=== PATIENT | male | born 1960 | race African-American/Black ===

== ENCOUNTER 2021-02-26 07:02 | Day surgery (SDC) | payer OTHER ==
[2021-02-26] MEDS ORDERED: NA CHLORIDE 0.9% 1,000 ML ONE (07:56)
[2021-02-26] MEDS ORDERED: propofoL 200 MG/20 ML VIAL IV ONE ×3 (08:51→09:27)
[2021-02-26] MEDS ORDERED: LIDOCAINE 1% MPF 5 ML VIAL ONE (08:51)
[2021-02-26 10:09] VITALS: BP 114/81; TEMP 97.2; O2SAT 98
--- NOTE | 2021-02-26 20:14 | OP ---
Surgeon: Willie Fish MD Procedure Performed: Colonoscopy. Indications For Procedure: History of polyps. Plan For Anesthesia: Monitored anesthesia care. Complexity: Average. Technique: After obtaining informed consent from the patient explaining risks and complications whic h include, but are not limited to bleeding, infection, perforation, and anesthesia complication, the patient was placed in a left lateral position and sedation was given. Digital rectal exam was perfor med. Subsequently, scope inserted into the rectum and was guided to the cecum. Subsequently, the sc ope was withdrawn. The quality of prep was poor with quite limited visualization. Findings: No obstructing mass lesions were visualized, but cannot comment on any other finding due t o poor prep. Plan: Continue current management. I would recommend repeating colonoscopy with extended prep, prob ably another half dose of the prep in 3-6 months. US/MODL Voice ID: [id number] Report ID: [id number]
== END 2021-02-26 09:38 | disposition home or self-care (01) ==
LOC: OR 07:02
PROVIDERS: ATTEND Internal Medicine Gastroenterology
PROC: 0DJD8ZZ Inspection of Lower Intestinal Tract, Via Natural or Artificial Opening Endoscopic (ICD-10-PCS; principal; 2021-02-26 08:30)
DX: Z86.010 Personal history of colon polyps (principal); Z20.822 Contact with and (suspected) exposure to COVID-19; I10 Essential (primary) hypertension; I51.9 Heart disease, unspecified; E66.9 Obesity, unspecified; K57.30 Diverticulosis of large intestine without perforation or abscess without bleeding; R19.7 Diarrhea, unspecified
CPT/HCPCS: 82947; 45378; U0003; J2704 ×3; J7030

== ENCOUNTER 2021-09-01 08:17 | Day surgery (SDC) | payer OTHER ==
[2021-09-01] MEDS ORDERED: NA CHLORIDE 0.9% 1,000 ML ONE (08:30)
[2021-09-01] MEDS ORDERED: ALBUTEROL 2.5 MG/3 ML NEB SOL ONE (09:00)
[2021-09-01] MEDS ORDERED: propofoL 200 MG/20 ML VIAL IV ONE (12:27)
[2021-09-01] MEDS ORDERED: LIDOCAINE 1% MPF 5 ML VIAL ONE (12:27)
[2021-09-01] MEDS ORDERED: SIMETHICONE 40 MG/ 0.6 ML ONE (12:46)
[2021-09-01 14:17] VITALS: O2SAT 99
[2021-09-01 14:19] VITALS: BP 106/50; TEMP 96.8
--- NOTE | 2021-09-02 00:51 | OP ---
Surgeon: Willie Fish MD Procedure Performed: Colonoscopy. Indications For Procedure: History of polyps, high risk screening. Plan For Anesthesia: Monitored anesthesia care. Complexity: High due to patient's pulmonary status. Technique: After obtaining informed consent from the patient and explaining risks and complications, which include, but are not limited to bleeding, infection, perforation, and anesthesia complications , patient was placed in a left lateral position and sedation was given. Digital rectal exam was perf ormed. Then the scope was advanced into the rectum and carefully guided up till the cecum. The cecu m was identified by the ileocecal valve and appendiceal orifice. Then scope gradually withdrawn whil e carefully examining the mucosa. Quality of prep was fair with [place] prep score of 6 x 9. After c ompletion of examination, scope and equipment were withdrawn and procedure terminated in a safe sebastian r. Findings: 1.TIMOTEO revealed decreased rectal tone. Few diverticula seen in the sigmoid. 2.Diminutive polyps seen in the rectum. These were removed by cold forceps biopsies. No other ronald s lesion seen in the entire colon. Complications: None. Tolerance To Anesthesia: Excellent. Postoperative Diagnosis: Diverticulosis, polyps, decreased rectal tone. Estimated Blood Loss: Minimal. Plan: 1.Await pathology. 2.Follow up in the GI clinic. 3.High-fiber diet. 4.Repeat colonoscopy in 3 to 5 years based on pathology. US/MODL Voice ID: [id number] Report ID: [id number]
== END 2021-09-01 14:00 | disposition home or self-care (01) ==
LOC: OR 08:17
PROVIDERS: ATTEND Internal Medicine Gastroenterology
PROC: 0DBP8ZX Excision of Rectum, Via Natural or Artificial Opening Endoscopic, Diagnostic (ICD-10-PCS; principal; 2021-09-01 10:00)
DX: Z12.11 Encounter for screening for malignant neoplasm of colon (principal); Z86.010 Personal history of colon polyps; K57.30 Diverticulosis of large intestine without perforation or abscess without bleeding; K63.5 Polyp of colon
CPT/HCPCS: 82947; 88305; 45380; J2704; J7030